=== PATIENT | male | born 1985 | race Caucasian/White ===

== ENCOUNTER 2022-07-21 13:38 | Outpatient (CLI) | payer OTHER ==
[2022-07-21 14:18] VITALS: BP 132/90
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
== END 2022-07-21 13:39 | disposition home or self-care (01) ==
LOC: SC 13:38
PROVIDERS: ATTEND Nurse Practitioner Family
DX: G47.8 Other sleep disorders (principal); R06.83 Snoring; I49.9 Cardiac arrhythmia, unspecified; E66.3 Overweight; Z68.29 Body mass index [BMI] 29.0-29.9, adult
CPT/HCPCS: 99203; 99212

== ENCOUNTER 2022-08-18 09:02 | Outpatient (CLI) | payer OTHER | END 2022-08-18 09:03 | disposition home or self-care (01) | LOC: SC 09:02 | PROVIDERS: ATTEND Nurse Practitioner Family | DX: R09.02 Hypoxemia (principal) | CPT/HCPCS: 95806 ==

== ENCOUNTER 2023-01-04 20:40 | Outpatient (CLI) | payer OTHER | END 2023-01-04 23:59 | disposition EMS.NT | LOC: EMS 20:40 | DX: F41.9 Anxiety disorder, unspecified (principal) ==

== ENCOUNTER 2023-07-12 16:01 | Emergency (ER) | payer OTHER ==
--- NOTE | 2023-07-12 18:33 | ED Physician Documentation ---
History of Present Illness - Stated complaint Stated Complaint: LT FOOT PX - Chief complaint Chief Complaint: Ext Problem - History obtained from History obtained from: Patient - Additonal information Additional information: 37-year-old male with history of idiopathic V. tach with ICD presents for atraumatic left foot pain. Patient states that he woke up 1 morning with pain underneath his left great toe towards the ball of his foot. It is worse when he bears weight and if he lowers his extremity after elevation. Taking Motrin at home without significant relief denies injury or trauma. Review of Systems Constitutional: denies: Fever, Chills Throat: denies: Dental pain / toothache Cardiac: denies: Chest pain / pressure, Palpitations Respiratory: denies: Dyspnea, Cough Musculoskeletal: reports: Extremity pain. denies: Neck pain, Back pain, Joint pain, Extremity swelling PD PAST MEDICAL HISTORY - Past Medical History Past Medical History: Yes Cardiovascular: Other Respiratory: Asthma Endocrine/Autoimmune: Other GI: Other Other Past Medical History: idiopathic cardiac arrest 2018, 2020, 07/02/23, hoshimotos, esonophilic esophagitis. - Past Surgical History Past Surgical History: Yes Cardiovascular: AICD HEENT: Tonsil/Adenoidectomy - Present Medications Home Medications: Ambulatory Orders Medication Instructions Recorded Confirmed Metoprolol Succinate [Toprol Xl] 50 mg PO DAILY 08/31/22 07/12/23 Levothyroxine [Synthroid] 12.5 mcg PO QDAC 07/12/23 07/12/23 - Allergies Allergies/Adverse Reactions: Allergies Allergy/AdvReac Type Severity Reaction Status Date / Time amoxicillin Allergy Rash Verified 07/12/23 16:18 cephalexin Allergy Rash Verified 07/12/23 16:18 Penicillins Allergy Rash Verified 07/12/23 16:18 - Social History Does the pt smoke?: Yes Smoking Status: Current some day smoker Does the pt drink ETOH?: Yes - Immunizations Immunizations are current?: No PD ED PE NORMAL - Vitals Vital signs reviewed: Yes - General General: Alert and oriented X 3, No acute distress - HEENT HEENT: Atraumatic - Neck Neck: Supple, no meningeal sign - Derm Derm: Normal color, Warm and dry, No rash - Extremities Extremities: No deformity, Normal ROM s pain, Other (tenerness at base of L great toe at ball of foot) - Neuro Neuro: Alert and oriented X 3, 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 No deformity, tenderness to palpation at the base of the great toe on the underside of foot. Question fasciitis. Patient requested x-rays of the foot, which were performed and negative for acute findings. Patient placed in shoe for comfort. RICE instructions counseled at bedside. Departure - Departure Disposition: 01 Home, Self Care Clinical Impression: Foot pain Qualifiers: Laterality: left Qualified Code(s): M79.672 - Pain in left foot Condition: Stable Instructions: Plantar Fasciitis Tx Comments: Take Tylenol and Motrin as needed for pain. Please elevate whenever you are resting. Wear very supportive shoes. You may also apply ice as needed. Forms: PCP List Discharge Date/Time: 07/12/23 19:02
--- NOTE | 2023-07-12 18:43 | XRAY Report ---
PROCEDURE: Foot 3 View LT INDICATIONS: PAIN UNDER BALL OF GREAT TOE TECHNIQUE: 3 views of the foot were acquired. COMPARISON: None. FINDINGS: Bones: No fractures or dislocations. No suspicious bony lesions. Soft tissues: No suspicious soft tissue calcifications or masses. IMPRESSION: No acute bony abnormality. If there is continued clinical concern for pathology or occult fracture, consider follow-up imaging w ith repeat radiographs in 10-14 days and possible advanced imaging (CT, MRI, bone scan) if symptoms p ersist. Reviewed by: Michel Womack MD on 07/12/2023 6:42 PM PDT Approved by: Michel Womack MD on 07/12/2023 6:42 PM PDT Station ID: [id number]
[2023-07-12 19:03] VITALS: BP 138/76; O2SAT 98
== END 2023-07-12 19:02 | disposition home or self-care (01) ==
LOC: ED 16:01
DX: M79.672 Pain in left foot (principal); F17.200 Nicotine dependence, unspecified, uncomplicated
CPT/HCPCS: 99283